=== PATIENT | male | born 1975 | race Caucasian/White ===

== ENCOUNTER 2016-11-28 17:16 | Emergency (ER) | payer OTHER ==
[2016-11-28] MEDS ORDERED: ONDANSETRON 4 MG TAB.RAPDIS PO ONE (17:34)
[2016-11-28] MEDS ORDERED: NORMAL SALINE 1000 ML 2,000 ML IV ONE (17:35)
--- NOTE | 2016-11-28 17:36 | ER Document Report ---
ED Medical Screen (RME) - General Chief Complaint: High Blood Sugar Stated Complaint: BLOOD SUGAR PROBLEM Time seen by provider: 17:33 Mode of Arrival: Ambulatory Information source: Patient Notes: 41-year-old male who has been type II diabetic for 2 years stop taking his metformin 2 weeks ago consult was making him sick. He checked his glucose today and it was measuring high on his meter because he was having dizziness, nausea and vomiting, iron taste in his mouth, hot. - Related Data Allergies/Adverse Reactions: No Known Allergies Allergy (Unverified 11/28/16 17:32)
[2016-11-28 18:13] LABS: ABSOLUTE EOSINOPHILS # (AUTO) 0.1 10^3/uL (0.0-0.6); ABSOLUTE LYMPHOCYTES (AUTO) 2.3 10^3/uL (0.5-4.7); ABSOLUTE MONOCYTES (AUTO) 0.7 10^3/uL (0.1-1.4); ABSOLUTE NEUT (AUTO) 6.5 10^3/uL (1.7-8.2); BASOPHILS % (AUTO) 0.4 % (0-2); EOSINOPHILS % (AUTO) 1.3 % (0-6); HEMATOCRIT 47.8 % (37.9-51.0); HEMOGLOBIN 15.4 g/dL (13.5-17.0); HGB HCT DIFFERENCE -1.6; LYMPHOCYTES % (AUTO) 24.1 % (13-45); MEAN CORPUSCULAR HEMOGLOBIN 30.3 pg (27.0-33.4); MEAN CORPUSCULAR HGB CONC 32.1 g/dL (32.0-36.0); MEAN CORPUSCULAR VOLUME 94 fl (80-97); MONOCYTES % (AUTO) 6.8 % (3-13); RED BLOOD COUNT 5.07 10^6/uL (4.35-5.55); RED CELL DISTRIBUTION WIDTH 12.9 % (11.5-14.0); SEGMENTED NEUTROPHILS % (AUTO) 67.4 % (42-78); WHITE BLOOD COUNT 9.6 10^3/uL (4.0-10.5)
[2016-11-28 18:18] LABS: VENOUS BLOOD BASE EXCESS -2.6 mmol/L; VENOUS BLOOD HCO3 22.2 mmol/L (20-32); VENOUS BLOOD PCO2 38.8 mmHg (35-63); VENOUS BLOOD PH 7.38 (7.30-7.42)
[2016-11-28 18:37] LABS: ALANINE AMINOTRANSFERASE 31 U/L (21-72); ALBUMIN 4.1 g/dL (3.5-5.0); ALKALINE PHOSPHATASE 162 U/L (38-126); ANION GAP 14 (5-19); ASPARTATE AMINO TRANSFERASE 20 U/L (17-59); BILIRUBIN,TOTAL 0.6 mg/dL (0.2-1.3); BLOOD UREA NITROGEN 11 mg/dL (7-20); CALCIUM 9.2 mg/dL (8.4-10.2); CARBON DIOXIDE 22 mmol/L (22-30); CHLORIDE 93 mmol/L (98-107); CREATININE RESULT 1.01 mg/dL (0.52-1.25); SODIUM 128.5 mmol/L (137-145); TOTAL PROTEIN 6.5 g/dL (6.3-8.2)
[2016-11-28 18:48] LABS: GLUCOSE 690 mg/dL (75-110)
[2016-11-28] MEDS ORDERED: NORMAL SALINE 1000 ML 1,000 ML IV ONE (19:19)
[2016-11-28] MEDS ORDERED: INSULIN REG, HUMAN 100 UNIT/ML 3 ML VIAL (PYX) SUBCUT ONE (19:20)
--- NOTE | 2016-11-28 19:26 | ER Document Report ---
ED Blood Sugar Problem - General Chief Complaint: High Blood Sugar Stated Complaint: BLOOD SUGAR PROBLEM Time seen by provider: 19:20 Mode of Arrival: Ambulatory Notes: Patient is a 41 year old male that comes to the ED for chief complaint of high blood sugar with nausea, vomiting, feeling dry, and tiredness, worse over the past 2 days. His blood sugar was reading HIGH at home today. He states that he as been off metformin for 2-3 weeks, states it "stopped working" at 1000 mg and his glucose was still in the 200s or so. He has not seen his PCP (in [place], has not had easy access to transport only and has not seen them). TRAVEL OUTSIDE OF THE [place] IN LAST 30 DAYS: No - Related Data Allergies/Adverse Reactions: No Known Allergies Allergy (Unverified 11/28/16 17:32) Past Medical History - General Information source: Patient - Social History Smoking Status: Never Smoker Chew tobacco use (# tins/day): No Frequency of alcohol use: None Drug Abuse: None Lives with: Family Family History: Reviewed & Not Pertinent Patient has suicidal ideation: No Patient has homicidal ideation: No - Medical History Medical History: Negative Renal/ Medical History: Denies: Hx Peritoneal Dialysis Surgical Hx: Negative - Immunizations Immunizations up to date: Yes Hx Diphtheria, Pertussis, Tetanus Vaccination: Yes Review of Systems - Review of Systems Constitutional: See HPI EENT: No symptoms reported Cardiovascular: No symptoms reported Respiratory: No symptoms reported Gastrointestinal: See HPI Genitourinary: No symptoms reported Male Genitourinary: No symptoms reported Musculoskeletal: No symptoms reported Skin: No symptoms reported Hematologic/Lymphatic: No symptoms reported Neurological/Psychological: No symptoms reported Physical Exam - Vital signs Vitals: Temp Pulse Resp BP Pulse Ox 98 F 93 24 H 130/81 H 97 11/28/16 17:33 11/28/16 17:33 11/28/16 17:33 11/28/16 17:33 11/28/16 17:33 Interpretation: Normal - General General appearance: Appears well, Alert In distress: None - HEENT Head: Normocephalic, Atraumatic Eyes: Normal Conjunctiva: Normal Extraocular movements intact: Yes Eyelashes: Normal Pupils: PERRL Nasal: Normal Mouth/Lips: Normal Mucous membranes: Normal Pharynx: Normal Neck: Normal - Respiratory Respiratory status: No respiratory distress Chest status: Nontender Breath sounds: Normal. No: Decreased air movement, Wheezing Chest palpation: Normal - Cardiovascular Rhythm: Regular. No: Tachycardia Heart sounds: Normal auscultation, S1 appreciated, S2 appreciated Murmur: No - Abdominal Inspection: Normal Distension: No distension Bowel sounds: Normal Tenderness: Nontender. No: Tender, Guarding Organomegaly: No organomegaly - Back Back: Normal, Nontender - Extremities General upper extremity: Normal inspection, Nontender, Normal color, Normal ROM , Normal temperature General lower extremity: Normal inspection, Nontender, Normal color, Normal ROM , Normal temperature, Normal weight bearing. No: Chu's sign - Neurological Neuro grossly intact: Yes Cognition: Normal Orientation: AAOx4 Beatrice Coma Scale Eye Opening: Spontaneous Beatrice Coma Scale Verbal: Oriented Jae Coma Scale Motor: Obeys Commands Beatrice Coma Scale Total: 15 Speech: Normal Motor strength normal: LUE, RUE, LLE, RLE Sensory: Normal - Psychological Associated symptoms: Normal affect, Normal mood - Skin Skin Temperature: Warm Skin Moisture: Dry Skin Color: Normal Course - Re-evaluation Re-evalutation: Hypoglycemia, no acidosis, anion gap is normal. Patient is not significantly hyponatremic, sodium correction is 137.9. Patient reporting feeling much better after IV fluids and insulin, requesting to leave, declines any further evaluation or treatment. Discussed with patient , discussed with Dr. Eaton, concern about patient's hyperglycemia level, patient will be started back on his metformin and additionally have 5 mg glipizide given, discussed sulfonylurea precautions, discussed close primary care follow-up, patient was given local referral for this. Patient states understanding and agreement, states he'll return if he develops return uncontrolled sugars, vomiting, or any other concerning symptoms. - Vital Signs Vital signs: Temp Pulse Resp BP Pulse Ox 98.6 F 78 16 114/81 96 11/28/16 23:16 11/28/16 23:16 11/28/16 23:16 11/28/16 23:16 11/28/16 23:16 - Laboratory Result Diagrams: 11/28/16 17:55 11/28/16 17:55 Laboratory results interpreted by me: 11/28/16 11/28/16 11/28/16 17:55 20:40 22:21 Sodium 128.5 L Chloride 93 L Glucose 690 H* POC Glucose 425 H* 329 H Alkaline Phosphatase 162 H Urine Glucose (UA) 11/28/16 22:23 Sodium Chloride Glucose POC Glucose Alkaline Phosphatase Urine Glucose (UA) >=500 H Discharge - Discharge Clinical Impression: Hyperglycemia Type II diabetes mellitus Qualifiers: Diabetes mellitus complication status: with unspecified complications Diabetes mellitus terminal carman insulin use: without jail use Qualified Code(s): E11.8 - Type 2 diabetes mellitus with unspecified complications Condition: Stable Disposition: HOME, SELF-CARE Additional Instructions: Please take both the metformin and the glipizide as prescribed. Please follow-up closely with primary care for additional adjustments (see referral) Return to the emergency department for any concerning symptoms including vomiting, sweating, feeling very weak, or inability to either control high or low blood sugar. Prescriptions: Glipizide 5 mg PO DAILY #30 tablet Metformin HCl [Glucophage] 1,000 mg PO BID #60 tablet Referrals: KATERINA UMANA MD [ACTIVE STAFF] - Follow up in 1 week ENEIDA BLAIR MD [ACTIVE STAFF] - Follow up in 1 week
[2016-11-28 23:01] LABS: APPEARANCE,URINE CLEAR; BILIRUBIN,URINE NEGATIVE (NEGATIVE); GLUCOSE, URINE >=500 mg/dL (NEGATIVE); KETONES,URINE NEGATIVE (NEGATIVE); LEUKOCYTE ESTERASE,URINE NEGATIVE (NEGATIVE); NITRITE,URINE NEGATIVE (NEGATIVE); PROTEIN,URINE NEGATIVE (NEGATIVE); URINE SPECIFIC GRAVITY 1.033; UROBILINOGEN,URINE NEGATIVE mg/dL (<2.0)
[2016-11-28 23:20] VITALS: BP 114/81
== END 2016-11-28 23:20 | disposition home or self-care (01) ==
LOC: ER 17:16
DX: E11.65 Type 2 diabetes mellitus with hyperglycemia (principal); R11.2 Nausea with vomiting, unspecified; R53.83 Other fatigue; Z79.84 Long term (current) use of oral hypoglycemic drugs
CPT/HCPCS: 99285; 36415; 82962; 85025; 80053; 81001; 82803; S0119; J1815